=== PATIENT | male | born 1940 | race Caucasian/White ===

== ENCOUNTER → 2017-08-18 | Outpatient (CLI) | payer MEDICARE, OTHER ==
[~2017-08-18] MED LIST: ACET325 PO; ASCO500 PO; ASCORBIC ACID SYRUP PO; ASPI81CH PO; ASPI81EC PO; ATOR20 PO; Alph-E-Mixed400 UNIT PO; B Complex-Foli1 EACH PO; B Complex1 EAC2 PO; BISA10S PR; Bactrim Ds Tab1 EACH PO; CEFP200 PO; CHOL10002 PO; CYCL10 PO; Ceftriaxone1 G2 IV; DOCU100 PO; Desyrel50 MG PO; FENT75TP TOP; FISH1000 PO; GABA100 PO; HYDCHL12.5 PO; Hydrocodone-Ap1 EA23 PO; Hytrin2 MG; Hytrin2 MG PO; IBUP400 PO; LAVAP17G PO; LISI20 PO; LOSA25 PO; LOSA50 PO; MELA3 PO; METF500 PO; METO25; METO25 PO; METO25ER PO; Micro-K10 MEQ PO; NAPR250 PO; PHENY100ER PO; POTCHL10ER PO; SENN187 PO; SERT50 PO; SIMV10 PO; Seroquel25 MG PO; TERA5 PO; TOCO400 PO; TRAZ50 PO; Vitamin C100 MG/ML PO; [UNRECOGNIZED DRUG - OTHER] PO
[2017-08-18 11:22] LABS: Hematocrit 44.2 % (37.0-53.0); Hemoglobin 14.2 g/dL (13.5-17.5); Mean Corpuscular HGB 27.5 pg (26.0-34.0); Mean Corpuscular HGB Conc 32.1 g/dL (31.5-36.5); Mean Corpuscular Volume 86 fL (80-100); Mean Platelet Volume 9.7 fL (9.1-12.4); Platelet Count 198 K/mm3 (150-400); RDW Coefficient Variation 14.1 % (11.7-14.2); RDW Standard Deviation 43.9 fL (35.1-46.3); Red Blood Cell Count 5.16 M/mm3 (4.30-5.90); White Blood Cell Count 21.15 K/mm3 (4.00-11.30)
[2017-08-18 12:26] LABS: Anion Gap 11 mmol/L (6-16); Blood Urea Nitrogen 17 mg/dL (8-24); Bun/Creatinine Ratio 18.4 (12.0-20.0); CO2, Blood 23 mmol/L (21-32); Chloride, Blood 102 mmol/L (98-108); Creatinine, Blood 0.93 mg/dL (0.60-1.20); Glomerular Filtration Rate >60 (60-); Glucose, Blood 165 mg/dL (70-99); Potassium, Blood 4.2 mmol/L (3.5-5.5); Sodium, Blood 136 mmol/L (136-145)
== END ==
LOC: LAB UVN 11:08 → EDSTATUS 11:36
PROVIDERS: Family Medicine
DX: R50.9 Fever, unspecified (principal)
CPT/HCPCS: 80048; 85027

== ENCOUNTER → 2017-08-19 | Outpatient (CLI) | payer MEDICARE, OTHER ==
[2017-08-19 08:00] LABS: Bilirubin, Urine Neg (Neg); Blood, Urine 3+ (Neg); Glucose Qualitative, Urine Neg (Neg); Ketones, Urine Neg (Neg); Leukocyte Esterase, Urine 3+ (Neg); Nitrite, Urine Neg (Neg); Protein, Urine 1+ (Neg); Urobilinogen, Urine NORM (Normal)
[2017-08-19 08:08] LABS: Appearance, Urine Clear (Clear); Color, Urine Pale Yellow (P-Yellow)
[2017-08-19 08:13] LABS: White Blood Cells, Urine TNTC /hpf (0-5)
[2017-08-19 08:14] LABS: Bacteria Few /hpf; Squamous Epithelial Cells Not Seen /hpf (Few)
== END ==
LOC: LAB UVN 03:30 → EDSTATUS 11:37
PROVIDERS: Family Medicine
DX: N39.0 Urinary tract infection, site not specified (principal)
CPT/HCPCS: 81001; 87077; 87086; 87186

== ENCOUNTER → 2017-12-14 | Outpatient (CLI) | payer MEDICARE, OTHER | END | disposition home or self-care (01) | LOC: LAB UVN 11:36 → EDSTATUS 13:23 | DX: A49.9 Bacterial infection, unspecified (principal) | CPT/HCPCS: 87070; 87077; 87186; 87205 ==

== ENCOUNTER → 2017-12-22 | Outpatient (CLI) | payer MEDICARE, OTHER ==
[2017-12-22 14:03] LABS: Hematocrit 41.9 % (37.0-53.0); Hemoglobin 13.5 g/dL (13.5-17.5); Mean Corpuscular HGB 27.4 pg (26.0-34.0); Mean Corpuscular HGB Conc 32.2 g/dL (31.5-36.5); Mean Corpuscular Volume 85 fL (80-100); Mean Platelet Volume 8.2 fL (9.1-12.4); Platelet Count 316 K/mm3 (150-400); RDW Standard Deviation 43.4 fL (35.1-46.3); Red Blood Cell Count 4.92 M/mm3 (4.30-5.90); White Blood Cell Count 9.01 K/mm3 (4.00-11.30)
[2017-12-22 14:15] LABS: Alanine Aminotransfer (ALT/SGP 25 U/L (12-78); Albumin, Blood 2.9 g/dL (3.4-5.0); Albumin/Globulin Ratio 0.7 (0.8-1.8); Alk Phos 116 U/L (50-136); Anion Gap 8 mmol/L (6-16); Aspartate Aminotrans (AST/SGOT 16 U/L (12-37); Bilirubin, Total 0.3 mg/dL (0.1-1.0); Blood Urea Nitrogen 16 mg/dL (8-24); Bun/Creatinine Ratio 25.3 (12.0-20.0); CO2, Blood 26 mmol/L (21-32); Calcium, Blood 8.7 mg/dL (8.5-10.1); Chloride, Blood 103 mmol/L (98-108); Creatinine, Blood 0.63 mg/dL (0.60-1.20); Globulin, Blood 4.3 g/dL (2.2-4.0); Glomerular Filtration Rate >60 (60-); Glucose, Blood 125 mg/dL (70-99); Potassium, Blood 3.8 mmol/L (3.5-5.5); Sodium, Blood 137 mmol/L (136-145); Total Protein, Blood 7.2 g/dL (6.4-8.2)
[2017-12-22 15:27] LABS: Appearance, Urine Hazy (Clear); Bilirubin, Urine Neg (Neg); Blood, Urine 5+ (Neg); Color, Urine Yellow (P-Yellow); Glucose Qualitative, Urine Neg (Neg); Ketones, Urine Neg (Neg); Leukocyte Esterase, Urine 3+ (Neg); Nitrite, Urine Neg (Neg); Protein, Urine 3+ (Neg); Specific Gravity, Urine 1.015 (1.003-1.022); Urobilinogen, Urine 1+ (Normal)
[2017-12-22 15:51] LABS: Bacteria Many /hpf; Squamous Epithelial Cells Few /hpf (Few); White Blood Cells, Urine 25-50 /hpf (0-5)
== END | disposition home or self-care (01) ==
LOC: EDSTATUS 13:24 → LAB UVN 13:45
PROVIDERS: Family Medicine
DX: N39.0 Urinary tract infection, site not specified (principal); M62.81 Muscle weakness (generalized)
CPT/HCPCS: 80053; 81001; 85027; 87077; 87086; 87186

== ENCOUNTER → 2018-07-12 | Outpatient (CLI) | payer MEDICARE, OTHER ==
[2018-07-12 19:38] LABS: Influenza A Negative (NEGATIVE); Influenza B Negative (NEGATIVE)
== END | disposition home or self-care (01) ==
LOC: EDSTATUS 11:48 → LAB UVN 18:44
DX: R50.9 Fever, unspecified (principal)
CPT/HCPCS: 87804

== ENCOUNTER 2018-10-22 21:14 | Inpatient (IN) | payer MEDICARE, OTHER ==
[~2018-10-22] VITALS: Ht 182.9 cm; Wt 90.3 kg
[~2018-10-22 21:14] MED LIST changes: -Desyrel50 MG PO
[2018-10-22] MEDS ORDERED: Lopressor 25 mg25 MG PO (21:31)
[2018-10-22] MEDS ORDERED: PSYSENPA PO (21:32)
[2018-10-22] MEDS ORDERED: TOCO1000 PO (21:34)
[2018-10-23 06:19] LABS: BASOPHILS ABSOLUTE AUTO 0.05 K/mm3 (0.00-0.23); BASOPHILS PERCENT AUTO 0 % (0-2); EOSINOPHILS PERCENT AUTO 0 % (0-6); Hemoglobin 13.3 g/dL (13.5-17.5); IMMATURE GRAN ABSOLUTE AUTO 0.08 K/mm3 (0.00-0.10); IMMATURE GRAN PERCENT AUTO 1 % (0-1); LYMPHOCYTES ABSOLUTE AUTO 0.96 K/mm3 (0.84-5.20); LYMPHOCYTES PERCENT AUTO 6 % (21-46); MONOCYTES ABSOLUTE AUTO 0.97 K/mm3 (0.16-1.47); MONOCYTES PERCENT AUTO 6 % (4-13); Mean Corpuscular HGB 26.8 pg (26.0-34.0); Mean Corpuscular HGB Conc 30.9 g/dL (31.5-36.5); Mean Corpuscular Volume 87 fL (80-100); Mean Platelet Volume 9.4 fL (9.1-12.4); NEUTROPHILS ABSOLUTE AUTO 15.48 K/mm3 (1.96-9.15); NEUTROPHILS PERCENT AUTO 88 % (41-73); Platelet Count 182 K/mm3 (150-400); RDW Coefficient Variation 15.3 % (11.7-14.2); RDW Standard Deviation 48.2 fL (35.1-46.3); Red Blood Cell Count 4.97 M/mm3 (4.30-5.90); White Blood Cell Count 17.54 K/mm3 (4.00-11.30)
[2018-10-23 06:36] LABS: Alanine Aminotransfer (ALT/SGP 27 U/L (12-78); Albumin, Blood 2.6 g/dL (3.4-5.0); Albumin/Globulin Ratio 0.7 (0.8-1.8); Alk Phos 150 U/L (50-136); Anion Gap 7 mmol/L (6-16); Aspartate Aminotrans (AST/SGOT 23 U/L (12-37); Bilirubin, Total 0.6 mg/dL (0.1-1.0); Blood Urea Nitrogen 27 mg/dL (8-24); Bun/Creatinine Ratio 26.7 (12.0-20.0); CO2, Blood 22 mmol/L (21-32); Calcium, Blood 8.1 mg/dL (8.5-10.1); Chloride, Blood 114 mmol/L (98-108); Creatinine, Blood 1.01 mg/dL (0.60-1.20); Globulin, Blood 3.6 g/dL (2.2-4.0); Glomerular Filtration Rate >60 (60-); Glucose, Blood 144 mg/dL (70-99); Potassium, Blood 4.2 mmol/L (3.5-5.5); Sodium, Blood 143 mmol/L (136-145); Total Protein, Blood 6.2 g/dL (6.4-8.2)
--- NOTE | 2018-10-23 07:29 | NUR ---
ADMIT NOTE/SHIFT SUMMARY PATIENT LETHARGIC UPON ADMIT AND NOT RESPONSIVE TO VERBAL STIMULI OR TOUCH. HOWEVER, PATIENT SLOWLY STARTED WAKING UP AND HAS BECOME ALERT AND ABLE TO FOCUS ON STAFF. PATIENT HAS BEEN MOANING AND CRYING OUT THIS MORNING. PATIENT JUST NOW STARTING TO SAY WORDS AND VERBALLY RESPOND TO STAFF WHEN HE IS SPOKEN TOO. PATIENT TURNED Q2H. ORAL CARE PROVIDED. IV FLUIDS RUNNING PER ORDERS. REPORT GIVEN TO ONCOMING RN.
--- NOTE | 2018-10-23 07:53 | NUR ---
The pt was awake, calling out. He answers that his name is "Bill", but more complicated questions he is giving me garbled sentences with obvious effort at getting some words and phrases out. Falls back to sleep quickly after my conversation with him. He was attempting to take his watch off of the left wrist, so I helped him with this as he was in danger of dislodging the IV infusing on the left hand. Watch was placed in the [facility] patient belongings bag in thept's own wheelchair here in the room. IV was secured with coban and MT spandage to prevent accidental dislodgement. Vital signs taken, noted tachypnea, but no use of accessory muscles nor respiratory distress. He has coarse tracheal secretions, and occasional cough but not expectorating any sputum at this time. Lying down, and appears to be comfortable, non distressed, non anxious. Low grade fever noted and documented.
--- NOTE | 2018-10-23 09:50 | NUR ---
Bedside swallow evaluation completed per [facility] policy algorithm. No difficulty swallowing. The pt is sitting upright, eating pudding and dry cheerios with a spoon.
--- NOTE | 2018-10-23 11:07 | NUR ---
SPOKE WITH KIRIT FROM [facility], PT BASELINE MENTATION IS ALERT AND ORIENTED TO SELF, BUT HE STATES THE PATINET CALLS OUT FOR MOM/DAD, ATTEMPTS TO GET UP AND WALK ALTHOUGH HE IS PARAPELIGIC AND DOES NOT KNOW WHERE HE IS OR THE DATE. KIRIT STATES THERE ARE TIME, WHICH "ARE FEW AND FAR BETWEEN" WHERE THE PATIENT CAN BE REORIENTED TO WHERE AND TIME.
--- NOTE | 2018-10-23 11:09 | NUR ---
ASSUMED CARE OF PATIENT AT APPROX 0700, PT RESTING IN BED, MOANING AND RESPONDING TO VERBAL STIMULI. DURING ASSESSMENT THIS AM, PT IS ALERT AND ORIENTED TO SELF ONLY. PT SPEECH IS LOUD, GARBLED AND NO ALWAY APPROPRIATE ANSWER. PT STATES HE IS IN A HALLWAY IN [place] AND THE DAY IS THURSDAY. PT CALLS OUT FOR HELP AND MOM/DAD AND AT TIMES, WHAT APPEARS TO BE RANDOM WORDS. ATTEMPTS TO ANSWER QUESTIONS. PT ON RA, DENIES SOB, RESP EVEN AND UNLABORED BETWEEN 18-24. PT DENIES PAIN AND IS REQUESTING FOOD. DR OLIVARES AT BEDSIDE, ORDERS FOR BEDSIDE SWALLOW AND DIET IF PASSED. SUPERPUBLIC CATHETER IN PLACE, PATENT AND DRAINING. VSS. WILL CONTINUE TO MONITOR.
--- NOTE | 2018-10-23 16:16 | NUR ---
After calls to other departments to find an available RN who could attempt an IV start using the sonosite, unsuccessfully, Davis Adamson from [facility] was able to insert an IV peripherally. Prior to this, both myself and the principal technical specialist had attempted and failed to start an IV on the pt after he pulled his IV out this morning. He had become increasingly agitated while left alone in the room, pulling off his telemetry box, pulling on his suprapubic catheter, and constantly shouting out various confused requests. He was calm when a staff member was talking with him at the bedside; however, left alone he was constantly yelling and pulling the equipment off and tearing things apart. He will not keep the SCDs on his legs. Call to [facility] and spoke with Tom, one of the's primary nurses there. Tom clarified that the patient does NOT have an allergy to Serequel; indeed, had been receiving it but had had some oversedation when the dose had been increased to calm the pt's agitation. The pt has a current order at their facility for serequel, and this was communicated to Dr. Krishnan who ordered the medication for the patient's agitation at this time. Presently the pt has a fever of 102.5. He is being offered and drinking cupfuls of ice water, and now that he has an IV, is getting both the scheduled antibiotic and his concurrent continuous IV fluids. He is calm, lying in bed awake and alert, but no longer yelling out. Music is playing in the background. He is no longer pulling at any lines nor tubes, and these have been hidden/covered with pillows or linen to remove them from the pt's sight.
--- NOTE | 2018-10-23 18:22 | NUR ---
SHIFT SUMMARY PT ALERT AND ORIENTED TO SELF, ANSWERS SIMPLE QUESTIONS APPROPRIATELY. WHEN ASKED MORE COMPLICATED QUESTIONS PT IS SLOW TO RESPOND, GARBLED SPEECH AT TIMES AND INAPPROPRIATE RESPONSES. WHEN STAFF IS OUT OF EYE SIGHT PT CALLING OUT FOR DAD/MOM AND OTHER WORDS, NOTIFED DR OLIVARES, NEW ORDERS FOR SEROQUEL 12.5 MG PO Q12H PRN FOR AGITATIONS. KIRIT AT [facility] STATES THAT THERE IS NOT AN ALLERGY, HOWEVER AN ISSUE WITH OVER SEDATION WITH HIGH DOSES. MEDICATED PER EMAR FOR AGGITATION. PT DENIES PAIN, SOB AND N/V. BEDSIDE SWALLOW EVAL COMPLETED THIS AM, SOFT BITE SIZE DIET ORDERED, PT APPEARS TO BE TOLERATING WELL. PT RECEIVING IV ANTIBIOTICS. SUPERPUBIC BURNETTE IN PLACE AND DRAINING. ELEVATE PT NOTED THIS AFTERNOON, AND PT FEBRILE THIS AFTERNOON, MEDICATED WITH TYLENOLx1. NO OTHER ACUTE CHANGES NOTED DURING SHIFT. WILL COTINUE TO MONITOR UNTIL REPORT GIVEN TO ONCOMING RN.
--- NOTE | 2018-10-23 18:25 | NUR ---
Febrile despite oral rehydration and reinitiation of maintainance IV fluids and IV antibiotics after IV site established. Cooling measures: the pt has only been wearing a cotton gown, and at this time his face, neck, arms and head were wiped with a cool washcloth (much to his consternation), more ice water given by mouth, fan placed facing him on the table nearby, and Tylenol was given by mouth with drinks of ice water. He is keeping his eyes closed, occasionally yelling out "Daddy" or "Renetta" or "Bill".
[2018-10-24 03:48] LABS: BASOPHILS ABSOLUTE AUTO 0.02 K/mm3 (0.00-0.23); BASOPHILS PERCENT AUTO 0 % (0-2); EOSINOPHILS ABSOLUTE AUTO 0.03 K/mm3 (0.00-0.68); EOSINOPHILS PERCENT AUTO 0 % (0-6); Hematocrit 34.1 % (37.0-53.0); Hemoglobin 10.8 g/dL (13.5-17.5); IMMATURE GRAN ABSOLUTE AUTO 0.03 K/mm3 (0.00-0.10); IMMATURE GRAN PERCENT AUTO 0 % (0-1); LYMPHOCYTES ABSOLUTE AUTO 0.86 K/mm3 (0.84-5.20); LYMPHOCYTES PERCENT AUTO 11 % (21-46); MONOCYTES PERCENT AUTO 9 % (4-13); Mean Corpuscular HGB 26.7 pg (26.0-34.0); Mean Corpuscular HGB Conc 31.7 g/dL (31.5-36.5); Mean Platelet Volume 8.6 fL (9.1-12.4); NEUTROPHILS ABSOLUTE AUTO 6.39 K/mm3 (1.96-9.15); NEUTROPHILS PERCENT AUTO 80 % (41-73); Platelet Count 113 K/mm3 (150-400); RDW Coefficient Variation 15.5 % (11.7-14.2); RDW Standard Deviation 46.9 fL (35.1-46.3); Red Blood Cell Count 4.05 M/mm3 (4.30-5.90); White Blood Cell Count 8.03 K/mm3 (4.00-11.30)
[2018-10-24 03:57] LABS: Mean Corpuscular Volume 84 fL (80-100)
[2018-10-24 04:14] LABS: Anion Gap 4 mmol/L (6-16); Blood Urea Nitrogen 20 mg/dL (8-24); CO2, Blood 23 mmol/L (21-32); Chloride, Blood 113 mmol/L (98-108); Glomerular Filtration Rate >60 (60-); Glucose, Blood 107 mg/dL (70-99); Potassium, Blood 3.7 mmol/L (3.5-5.5); Sodium, Blood 140 mmol/L (136-145)
--- NOTE | 2018-10-24 05:51 | NUR ---
SHIFT SUMMARY: PATIENT VERY DROWSY AT THE BEGINNING OF THE SHIFT. PATIENT UNABLE TO STAY AWAKE FOR A PERIOD LONG ENOUGH TO SAFELY TAKE HIS 2100 PO MEDICATIONS LAST NIGHT. THROUGHOUT THE NIGHT PATIENT SLOWLY STARTED TO WAKE UP FURTHER. PATIENT NOW ALERT BUT CONFUSED AND FORGETFUL. PATIENT ABLE TO ANSWER SHORT QUESTIONS BUT DOES NOT ALWAYS ANSWER APPROPRIATELY. PATIENT APPEARED TO NAP ON AND OFF THROUGHOUT THE NIGHT. PATIENT TURNED Q2H, IV FLUIDS AND ABX RUNNING PER ORDERS. PATIENT CURRENTL RESTING IN BED LOOKING OUT THE WINDOW. WILL CONTINUE TO MONITOR PATIENT AND REPORT TO ONCOMING RN.
--- NOTE | 2018-10-24 20:12 | NUR ---
SHIFT SUMMARY: When RN arrived today Pt was yelling out for Mom and Dad. Camlbed down after speaking with RN for awhile. Pt was confused and remained confused throughout this shift, althought he does follow directions well. LS were deminished. HR was reg. BT positive. Abd very distended and firm. SP cath draining yellow urine with some sediment in it. VSS throughout the shift. Pt has been repositioned throughout the shift. He had 2 very large liquid, brown stools this shift. Pt is unaware when he has a stool. IVF running throughout the shift. New antibiotics were ordered and given per orders. No other changes at this time. Report was given to night RN.
--- NOTE | 2018-10-25 07:25 | NUR ---
SHIFT SUMMARY PATIENT PLEASENT BUT CONFUSED THROUGHOUT THE NIGHT. PATIENT REQUIRED FREQUENT REORIENTATION. PATIENT MUCH MORE ALERT AND ABLE TO CARRY ON A CONVERSATION WITH STAFF. PATIENT ALSO ABLE TO RESPOND TO MOST QUESTIONS, HOWEVER, HIS RESPONSES ARE NOT ALWAYS APPROPRIATE. PATIENT APPEARED TO NAP ON AND OFF THROUGHOUT THE NIGHT. IV FLUIDS AND ABX RUNNING PER ORDERS. PATIENT TURNED Q2H. VITAL SIGNS CHARTED. REPORT GIVEN TO ONCOMING RN.
--- NOTE | 2018-10-25 17:26 | NUR ---
SHIFT SUMMARY PT RESTING IN BED THROUGHOUT THE DAY. VSS. ALERT AND ORIENTED TO SELF AND PLACE, REORIENTED TO TIME. YELLING OUT AT TIMES, BUT IS REDIRECTABLE. FOLLOWING COMMANDS APPROPRIATELY. LUNG SOUNDS EXPIRATORY WHEEZES TO UPPER LOBES, DIMINISHED BASES. NSR WITH PACs ON TELEMETRY RATE 69. ABDOMEN ROUND AND FIRM, SOFTER AFTER BM THIS AFTERNOON. SUPRAPUBIC CATHETER DRAINING CLEAR YELLOW URINE. PT UP TO RECLINER VIA CEILING LIFT FOR LUNCH AND TOLERATED WELL. LEFT BUTTOCK DRSG SOILED WITH STOOL. NEW CALCIUM ALGINATE AND MEPILEX TO LEFT BUTTOCK WOUND. WILL CONTINUE TO MONITOR.
--- NOTE | 2018-10-25 19:46 | NUR ---
CARE ASSUMPTION PT ALERT, ORIENTED TO SELF ONLY, CONFUSED AND REQUIRING REORIENTATION. PT STATES BEING "SHUFFLED FROM ROOM TO ROOM. BUILDING TO BUILDING" AND NEEDING A DENTIST, CONTINUALLY ASKING WHY THERE ARE NO DENTISTS HERE. PT ON BEDREST REQUIRING Q2H REPOSITIONING W/ MAX ASSIST. PT INCONTINENT OF STOOL, ATTENDS IN PLACE, C/D/I. SUPRAPUBIC CATH PATENT AND DRAINING CLEAR YELLOW URINE. WILL CONTINUE TO MONITOR AND PROVIDE CARE.
[2018-10-25 22:27] LABS: Vancomycin, Trough 16.9 ug/mL (5.0-10.0)
--- NOTE | 2018-10-26 04:23 | NUR ---
SHIFT SUMMARY PT ALERT, ORIENTED TO SELF ONLY, REQUIRING REORIENTATION TO TIME AND PLACE T/O SHIFT. PT CALLING OUT "MOTHER!" OCCASSIONALLY T/O SHIFT, STATING "I'M LONELY" UPON INQUIRY FOR PT CALLING OUT. PT ENCOURAGED TO USE CALL LIGHT INSTEAD OF CALLING OUT W/OUT SUCCESS IN PT USE OF CALL LIGHT. PT IN BED, W/ Q2H 2 PERSON MAX ASSIST W/ REPOSITIONING. PT PASSING CLEAR, MUCUOUSY GI OUTPUT & BROWN CHUNKS OF STOOL W/ MOST Q2H REPOSITION CHANGES. SUPRAPUBIC CATH PATENT AND DRAINING CLEAR YELLOW URINE. MONITOR SHOWS NSR, HR 70'S. LUNG SOUNDS CLEAR, DIM IN BASES. SPO2 > 92% ON RA. MEPILEX DRESSING IN PLACE TO L BUTTOCKS PRESSURE ULCER. WILL CONTINUE TO MONITOR AND PROVIDE CARE UNTIL REPORT OFF TO DAY SHIFT RN.
--- NOTE | 2018-10-26 16:00 | NUR ---
[facility] CARE VISIT: UPDATED INFO ON PT'S MEDICAL POA UPDATE on medical POA. Pt's medical POA is his step-son, Kishore, who lives out of [facility]. He will be sending me copies of this documentation & contact info. I will update medical records when I have his contact information. He lives in [facility]. For now, Family contact, working with Kishore, in managing pt's care is pt's son, NAVEEN [phone]. Pt's has had a stroke and is living at [facility]. She has expressive aphasia and is not able to act as his medical POA at this time. Son plans to talk with her this perry to update her on pt's status and hospital stay. I have reviewed the most current POLST obtained from [facility], completed with pt/ in March of 2018 with both sons. They request that pt's code status orders be changed to be in agreement with the most recent POLST. T/c to Dr with this information and code status changed to DNR per . I had a lengthy discussion with both sons by conference call re: family wishes for goals of care, pt's current status and plans for tx of UTI and transfer back to [facility]. Reviewed pt/'s selections on the current POLST with both sons and outlined what comfort care, comfort measures and/or hospice follow up care would entail and the available options that would be in line with their POLST choices. Son's very appreciative of the conversation and information. Plan made with them to meet with Naveen in person on his lunch break in pt's room at 1230 tomorrow. Naveen and Kishore to discuss pt's care with his and other family tomorrow to formulate identified goals for care moving forward. They feel their mom would want the UTI's treated at this time either with PO or IV medications. I offered to update the POLST to reflect this tomorrow when we meet in person, if that is indeed determined by pt's and family discussion. Per 's progress notes, pt's mentation is nearing baseline and he is improving/responding to treatment for the UTI/sepsis. Pending final culture results, he may be ready for discharge and return to [facility] as soon as tomorrow. This was shared with sons. I assessed pt in his room and case conferenced with his RN today several times. He is pleasantly confused, oriented to self and that he is in the hospital. Per his son, Naveen, his mentation has improved since admission. Son has talked to him on the phone today and visitied yesterday. I did not note nonverbal indicators of pain or distress and pt appears mostly calm and unbothered. I had discussed quality of life with sons to determine what pt's expectations/desires were and whether he had been fairly happy when he was not acutely ill, as he has many serious chronic illnesses. Son's anticipate his return to [facility] care when he is medically ready. Plan remains to meet with Naveen in person and conference call Kishore in on that meeting to discuss advanced care planning further in r/t future goals of care and whether they would want him to return to the hospital in the future for recurrent UTI's or other infections. They are happy with the treatment he is receiving at this time and do not want to make any further changes beyond changing his code status to DNR, which has been done.
--- NOTE | 2018-10-26 16:57 | NUR ---
SHIFT SUMMARY PT RESTING IN BED THROUGHOUT THE DAY. ALERT AND ORIENTED TO SELF AND PLACE, PT EASILY REORIENTED TO TIME AND SITUATION, BUT PT IS FREQUENTLY FORGETFUL. DENIES PAIN TODAY. LUNG SOUNDS DIMINISHED THROUGHOUT, NSR WITH PACs ON TELEMETRY. ABDOMEN ROUND, SOFT, NON TENDER. SUPRAPUBIC CATHETER DRAINING CLEAR YELLOW URINE. NORMAL STRENGTH TO BILATERAL HANDS, PT ABLE TO MOVE LEFT FOOT SLIGHTLY, BUT MOVEMENT IN NOT PURPOSEFUL. WILL CONTINUE TO MONITOR.
--- NOTE | 2018-10-26 17:06 | NUR ---
TRANSFER NOTE PT STABLE FOR TRANSFER TO MEDICAL FLOOR. REPORT CALLED TO TIFFANY KULKARNI ON MEDICAL FLOOR. PT TRANSFERED VIA BED TO MEDICAL FLOOR WITH BELONGINGS.
--- NOTE | 2018-10-26 18:12 | NUR ---
SUMMARY PT SITTING UP IN BED EATING DINNER, PT WAS TRANSFERRED UP FROM PCU, PT ALERT AND ORIENTED TO PLACE AND EVENT, NOT TO TIME, PT FORGETFUL AND PLEASANT, PT HAS A SUPRAPUBIC CATHETER IN PLACE DRAINING, PLAN TO DC BACK TO [facility] IN THE NEXT DAY OR 2, VSS, NO ACUTE CHANGES, WILL CONT TO MONITOR
--- NOTE | 2018-10-27 07:02 | NUR ---
SHIFT SUMMARY: PATIENT IS ALERT AND ORIENTED TO SELF. HE CONTINUES TO THINK HIS FAMILY IS AROUND, AND HIS PARENTS. APPARENTLY HIS MOTHER AND FATHER ARE BUT HE DOES NOT REMEMBER. THROUGOUT THE NIGHT HE CONTINUED TO CRY OUT AND THOUGHT HE WAS HUNTING WITH HIS FRIENDS. CONTINUED TO RE-ORIENT HIM BUT AT TIMES IT DID NOT WORK. OVERALL WITH HIS CONFUSION, HE DID WELL AND NEVER ESCLATED TO WANTING TO GET OUT OF BED OR PULLING ON LINES. HE WAS PLEASANT THROUGOUT. TOOK MEDS WITH NO COMPLICATONS. SLEPT OFF AND ON. CATHETER STAYED PATENT, IV DID START TO LEAK IN THE LEFT ARM, SO A NEW 22 G WAS STARTED IN THE RIGHT HAND. THIS IS INFUSING WITH NO PROBLEMS.
--- NOTE | 2018-10-27 12:13 | NUR ---
PT TRANSFERED TO ROOM 344 IN SPECIAL CARE UNIT. REPORT GIVEN TO JOSEP Ahuja RN.
--- NOTE | 2018-10-27 13:30 | NUR ---
Palliative Care f/u visit with pt and son, Cornel. Pt is much more active in calling out, anxious behaviors and disorientation. He has been in three different rooms in the past 24 hours and this is contributing to pt's disorientation. He is distraught in believing that he has done something that will affect his 's employment. He believes he is late for work. Son and I both reoriented him repeatedly and reassured him that all was well with his . She is, in fact, not employed but in a care facility herself after a CVA. Cornel and I reviewed the goals of care, current status and plans and reviewed pt's POLST in detail. Paul is being discharged back to [facility] today. Cornel reviewed medications and status of his dad's wound on coccyx with pt's bedside RN. Cornel has been transporting his dad to a wound care clinic 1-2xw for months and has been very involved in this care. Medications for anxiety discussed as that is pt's chief complaint. He denies pain, CHAIREZ, nausea but reports he feels like his heart is pounding. In explouring this further, pt reports that he feels very anxious. Cornel states he has been on seroquel tid at [place] and this has been very helpful. That is ordered q12h here. Pt's RN to ask Dr if pt can be given his dose of seroquel before transport by [facility] back to [place]. Son had been in contact with [facility] staff this am. They indicated that they would like to complete an updated POLST upon pt's return. I asked Cornel to make sure we get a copy of the updated POLST once it is completed and I asked them to be sure page 2 was filled out with patient's NOK/family and medical POA information provided in the spaces for that. Cornel verbalized understanding. Cornel also mentioned that he and his step-brother, Kishore, were in the process of transferring the medical POA responsibility to Cornel. I obtained advanced directive forms for Cornel and Kishore to review and complete as desired. I asked Cornel if he would like to conference call Kishore or to have me call him with an update. Cornel states he will be calling Kishore this afternoon. Cornel invited to call us with the number provided if they have any other questions or would like to discuss advanced care planning further. Cornel appreciative of the time spent and discussions re: his dad's care and planning.
--- NOTE | 2018-10-27 16:54 | NUR ---
SHIFT SUMMARY PATIENT YELLS OUT FREQUENTLY. ABLE TO REORIENT TO BEING IN THE HOSPITAL. NEW DRESSING PLACED TO COCCYX DUE TO NOTED REDNESS. NEW DRESSING PLACED IN WOUND. POTENTIAL DISCHARGE TOMORROW TO [facility].
--- NOTE | 2018-10-28 04:18 | NUR ---
SHIFT SUMMARY THE PT ADMITTED FOR SEPSIS. DNR. SOFT BITE SIZED CARDIAC DIET. CBG AT AC AND HS. [id number] DRESSING FOR PRESSURE ULCER O THE LEFT GLUTEAL CLEF, CHANGE PRN, COLLAGEN ECM SIN X2 IN WITH DRESSING CHANGE Q [address] TURNER CONSULT FOR UTI AND BACTEREMIA FROM CULTURE DONE AT THE [place]. [facility]. POSSIBLE DISCHARGE BACK TO [facility] FOLLOWING DR. TURNER CONSULT. CHRONIC SUPRAPUBIC CATHETER. TAKES MEDICATIONS WHOLE. PT PULLED 22G IV FROM R HAND. TO G IV TO R AC. 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 THE PT PRESENTED WITH AMS. THE PT IS A LONG-TERM CARE RESIDENT AT [facility] WHO WAS BROUGHT TO THE [place] ED AND DIAGNOSED WITH SEPSIS. THE PT NOTED TO HAVE RLL PNEUMONIA AND UTI SECONDARY TO CHRONIC SUPRAPUBIC CATHETER. THE PT HAS BEEN IN ROOM CALLING OUT FREQUENTLY FOR "MOM" THE PT IS PLEASENT AND COOPERATIVE WITH CARE. THE PT IS WELL KNOWN TO THIS NURSE. THE PT DOES APPEAR TO BE A BIT ANXIOUS IN ROOM DUE TO NOT RECONGNIZING HIS SURROUNDINGS. THE PT IS AWAKE AT THIS TIME WATCHING TV. NO APPARENT SIGNS OF ACUTE DISTRESS. FREQUENT VISUAL CHECKS THE PT DOES NOT USE THE CALL LIGHT AT THIS TIME.
[2018-10-28] MEDS ORDERED: Fruity C250 MG PO (09:06)
[2018-10-28] MEDS ORDERED: DOC250 PO (09:08)
[2018-10-28] MEDS ORDERED: OCULAR VITAMIN1 EACH PO (09:10)
[2018-10-28] MEDS ORDERED: SENN187 PO (09:12)
[2018-10-28] MEDS ORDERED: ARGINAID POWDE1 EACH PO (09:18)
[2018-10-28] MEDS ORDERED: DIVA250EC PO (09:19)
[2018-10-28] MEDS ORDERED: DIVA125EC PO (09:19)
[2018-10-28] MEDS ORDERED: QUET25 PO (09:24)
--- NOTE | 2018-10-28 16:11 | NUR ---
SHIFT SUMMARY REQUESTED FAX PER DR. MART REQUEST FROM ME, HAVE NOT HEARD BACK. NOTIFIED BRITTNY AND WILL REATTEMPT FOR LAB RESULTS 10/29. PATIENT HAS BEEN YELLING FOR "MOMMAHAD AND DADTANIA". REORIENTS WHEN STAFF ENTER ROOM. PATIENT HAS HAD NO ACUTE ISSUES. INCONTINENT OF STOOL. TOLERATING IV ANTIBIOTICS WITH NO ISSUES.
--- NOTE | 2018-10-29 04:47 | NUR ---
OCEAN CLAM BOAT CAPTAIN SUMMARY NO ACUTE CHANGES THIS SHIFT. PT AAOX2 WITH SOME INTERMITTENT CONFUSION. PT HAS SLEPT MAJORITY OF THE SHIFT. CONTINUED ON IV ZOSYN Q6H. PT ACCIDENTALLY PULLED IV WHILE SLEEPING. BURNETTE CATH PATENT AND DRAINING. VSS, WILL CONTINUE TO MONITOR.
--- NOTE | 2018-10-29 09:29 | NUR ---
FAXED/CALLED [facility] CALLED BALL WARPER TENDER ON DUTY, REQUESTING PT LAB RESULTS FOR BLOOD, URINE AND WOUND. HE FORWARDED MY CALL TO RELEASE OF INFORMATION DEPARTMENT. THEY HAD ME FAX ANOTHER REQUEST (ONE WAS FAXED YESTERDAY) FOR INFORMATION AND A COVER SHEET FOR THE PT IN ORDER TO GET THE RESULTS.
--- NOTE | 2018-10-29 14:18 | NUR ---
HOSPITALIST ROUNDED ON PT LABS RECEIVED FROM MA FOR HER REVIEW. HOSPITALIST ORDERED ECHO AND PUT IN DISCHARGE ORDERS FOR AFTER ECHO PERFORMED. AWAITING DISCHARGE PLANNING TO SECURE A BED AND TRANSPORT TO [facility]
[2018-10-29] MEDS ORDERED: Augmentin 875-1 EACH PO (15:48)
--- NOTE | 2018-10-29 16:18 | NUR ---
DISCHARGE NOTE PT'S IV DC'D WNL. PT'S PERSONAL WHEELCHAIR PICKED UP BY LOOM MECHANIC. PT'S FAMILY CALLED AND INFORMED PT IS GOING TO [facility]AC[facility] TODAY AROUND 4 PM. PT WILL BE TRANSPORTED VIA [facility] BY [facility]. REPORT CALLED TO [facility] NURSE BETH. DISCHARGE MEDICATIONS RECONCILED. PACKET PREPARED FOR FACILITY. DISCHARGE ORDERS FAXED TO [facility]. DISCHARGE PLANNING MADE ARRANGEMENTS FOR TRANSPORT AND FACILTY TRANSFER.
--- NOTE | 2018-10-29 17:14 | NUR ---
[facility] ARRIVED [facility] ARRIVED AND PT WAS TRANSPORTED VIA GURNEY WITH PERSONAL POSSESSIONS
== END 2018-10-29 17:03 | DRG 698 ==
LOC: ER 21:14 → MEDS 22:59 → PCU 22:59 → MEDS 10-26 17:16
PROVIDERS: Hospitalist; ADMIT Internal Medicine
DX: T83.511A Infection and inflammatory reaction due to indwelling urethral catheter, initial encounter (principal); L89.324 Pressure ulcer of left buttock, stage 4; A41.9 Sepsis, unspecified organism; R65.20 Severe sepsis without septic shock; G92 Toxic encephalopathy; J18.9 Pneumonia, unspecified organism; G82.20 Paraplegia, unspecified; N39.0 Urinary tract infection, site not specified; B96.4 Proteus (mirabilis) (morganii) as the cause of diseases classified elsewhere; B95.4 Other streptococcus as the cause of diseases classified elsewhere; E11.622 Type 2 diabetes mellitus with other skin ulcer; I10 Essential (primary) hypertension; F03.90 Unspecified dementia, unspecified severity, without behavioral disturbance, psychotic disturbance, mood disturbance, and anxiety; F32.9 Major depressive disorder, single episode, unspecified; I25.10 Atherosclerotic heart disease of native coronary artery without angina pectoris; E78.5 Hyperlipidemia, unspecified; E55.9 Vitamin D deficiency, unspecified; Z87.440 Personal history of urinary (tract) infections; Z88.8 Allergy status to other drugs, medicaments and biological substances; Z79.82 Long term (current) use of aspirin; Z79.899 Other long term (current) drug therapy; Z87.891 Personal history of nicotine dependence
CPT/HCPCS: 36415; 71045; 80048; 80053; 80202; 82947; 83605; 85025; 85651; 86140; 87040; 87070; 87205; 92610; 93005; 93010; 93306; 94640; 94760; 96361; 96374; 99285-25; A9270; C9113; J1644; J1885; J2543; J3370; J7030; J7050

== ENCOUNTER → 2018-12-08 | Outpatient (CLI) | payer MEDICARE, OTHER ==
[~2018-12-08] MED LIST changes: +ARGINAID POWDE1 EACH PO; +Augmentin 875-1 EACH PO; +DIVA125EC PO; +DIVA250EC PO; +DOC250 PO; +Fruity C250 MG PO; +Lopressor 25 mg25 MG PO; +OCULAR VITAMIN1 EACH PO; +PSYSENPA PO; +QUET25 PO; +TOCO1000 PO
[2018-12-08 14:49] LABS: Bilirubin, Urine Neg (Neg); Blood, Urine 5+ (Neg); Glucose Qualitative, Urine Neg (Neg); Ketones, Urine 1+ (Neg); Leukocyte Esterase, Urine 3+ (Neg); Nitrite, Urine Neg (Neg); Protein, Urine 4+ (Neg); Urobilinogen, Urine NORM (Normal)
[2018-12-08 15:03] LABS: Appearance, Urine Turbid (Clear); Color, Urine Yellow (P-Yellow)
[2018-12-08 15:06] LABS: Red Blood Cells, Urine TNTC /hpf (0-2); White Blood Cells, Urine TNTC /hpf (0-5)
[2018-12-08 15:08] LABS: Bacteria Many /hpf; Squamous Epithelial Cells Few /hpf (Few); Triple Phosphate Crystals Few /hpf
== END | disposition home or self-care (01) ==
LOC: EDSTATUS 13:00 → LAB UVN 14:31
PROVIDERS: Nurse Practitioner Family
DX: N39.0 Urinary tract infection, site not specified (principal)
CPT/HCPCS: 81001; 87077; 87086; 87147; 87186

== ENCOUNTER → 2018-12-28 | Outpatient (CLI) | payer MEDICARE, OTHER ==
[2018-12-28 07:41] LABS: Source, Urine Catheter
[2018-12-28 12:41] LABS: Bilirubin, Urine Neg (Neg); Blood, Urine 5+ (Neg); Glucose Qualitative, Urine Neg (Neg); Ketones, Urine Neg (Neg); Leukocyte Esterase, Urine 3+ (Neg); Nitrite, Urine Neg (Neg); Protein, Urine 2+ (Neg); Urobilinogen, Urine NORM (Normal); pH, Urine 6.5 (5.0-8.0)
[2018-12-28 13:24] LABS: Appearance, Urine Hazy (Clear); Color, Urine Yellow (P-Yellow); White Blood Cells, Urine 50-100 /hpf (0-5)
[2018-12-28 13:25] LABS: Bacteria Many /hpf; Mucus Light (0-Heavy); Squamous Epithelial Cells Rare /hpf (Few)
== END | disposition home or self-care (01) ==
LOC: LAB UVN 05:05 → EDSTATUS 09:49
DX: N39.0 Urinary tract infection, site not specified (principal)
CPT/HCPCS: 81001; 87077; 87086; 87186

== ENCOUNTER → 2019-01-26 | Outpatient (CLI) | payer MEDICARE, OTHER ==
[2019-01-26 12:29] LABS: Appearance, Urine Cloudy (Clear); Bilirubin, Urine Neg (Neg); Blood, Urine 4+ (Neg); Color, Urine Yellow (P-Yellow); Glucose Qualitative, Urine Neg (Neg); Ketones, Urine Neg (Neg); Leukocyte Esterase, Urine 3+ (Neg); Nitrite, Urine Pos (Neg); Protein, Urine 3+ (Neg); Urobilinogen, Urine NORM (Normal)
[2019-01-26 12:46] LABS: White Blood Cells, Urine TNTC /hpf (0-5)
[2019-01-26 12:48] LABS: Bacteria Many /hpf; Calcium Oxalate Crystals Rare /hpf; Squamous Epithelial Cells Not Seen /hpf (Few)
== END | disposition home or self-care (01) ==
LOC: LAB UVN 10:50 → EDSTATUS 13:22
DX: N39.0 Urinary tract infection, site not specified (principal)
CPT/HCPCS: 81001; 87077; 87086; 87186

== ENCOUNTER → 2019-06-09 | Outpatient (CLI) | payer MEDICARE, OTHER ==
[2019-06-09 19:22] LABS: Bilirubin, Urine Neg (Neg); Blood, Urine 5+ (Neg); Glucose Qualitative, Urine Neg (Neg); Ketones, Urine Neg (Neg); Leukocyte Esterase, Urine 3+ (Neg); Nitrite, Urine Pos (Neg); Protein, Urine 3+ (Neg); Urobilinogen, Urine NORM (Normal)
[2019-06-09 19:28] LABS: Color, Urine Yellow (P-Yellow)
[2019-06-09 19:29] LABS: Appearance, Urine Cloudy (Clear)
[2019-06-09 19:30] LABS: Bacteria Many /hpf; Red Blood Cells, Urine TNTC /hpf (0-2); Squamous Epithelial Cells Not Seen /hpf (Few); Transitional Epithelial Cells Few /hpf (0-Rare); White Blood Cells, Urine TNTC /hpf (0-5)
== END | disposition home or self-care (01) ==
LOC: LAB UVN 12:00 → EDSTATUS 15:04 → LAB UVN 15:04
PROVIDERS: Nurse Practitioner Family
DX: N39.0 Urinary tract infection, site not specified (principal)
CPT/HCPCS: 81001; 87086

== ENCOUNTER 2020-02-17 14:14 | Inpatient (IN) | payer MEDICARE, OTHER ==
[~2020-02-17] VITALS: Ht 170.2 cm; Wt 71.1 kg
[2020-02-17 14:55] LABS: BASOPHILS ABSOLUTE AUTO 0.05 K/mm3 (0.00-0.23); BASOPHILS PERCENT AUTO 0 % (0-2); EOSINOPHILS ABSOLUTE AUTO 0.09 K/mm3 (0.00-0.68); EOSINOPHILS PERCENT AUTO 1 % (0-6); Hematocrit 43.9 % (37.0-53.0); Hemoglobin 13.2 g/dL (13.5-17.5); IMMATURE GRAN ABSOLUTE AUTO 0.08 K/mm3 (0.00-0.10); IMMATURE GRAN PERCENT AUTO 1 % (0-1); LYMPHOCYTES ABSOLUTE AUTO 1.34 K/mm3 (0.84-5.20); LYMPHOCYTES PERCENT AUTO 9 % (21-46); MONOCYTES ABSOLUTE AUTO 0.75 K/mm3 (0.16-1.47); MONOCYTES PERCENT AUTO 5 % (4-13); Mean Corpuscular HGB 25.9 pg (26.0-34.0); Mean Corpuscular HGB Conc 30.1 g/dL (31.5-36.5); Mean Corpuscular Volume 86 fL (80-100); Mean Platelet Volume 8.7 fL (9.1-12.4); NEUTROPHILS ABSOLUTE AUTO 12.36 K/mm3 (1.96-9.15); NEUTROPHILS PERCENT AUTO 84 % (41-73); Platelet Count 380 K/mm3 (150-400); RDW Coefficient Variation 14.5 % (11.7-14.2); RDW Standard Deviation 46.1 fL (35.1-46.3); White Blood Cell Count 14.67 K/mm3 (4.00-11.30)
[2020-02-17 14:59] LABS: Source, Urine Catheter
[2020-02-17 15:12] LABS: Appearance, Urine Cloudy (Clear); Bilirubin, Urine Neg (Neg); Blood, Urine 5+ (Neg); Color, Urine Yellow (P-Yellow); Glucose Qualitative, Urine 2+ (Neg); Ketones, Urine Neg (Neg); Leukocyte Esterase, Urine 3+ (Neg); Nitrite, Urine Pos (Neg); Protein, Urine 3+ (Neg); Specific Gravity, Urine 1.015 (1.003-1.022); Urobilinogen, Urine 1+ (Normal)
[2020-02-17 15:13] LABS: Bacteria Many /hpf; Red Blood Cells, Urine TNTC /hpf (0-2); Squamous Epithelial Cells Few /hpf (Few); White Blood Cells, Urine TNTC /hpf (0-5)
[2020-02-17 15:14] LABS: Alanine Aminotransfer (ALT/SGP 41 U/L (12-78); Albumin, Blood 2.2 g/dL (3.4-5.0); Albumin/Globulin Ratio 0.4 (0.8-1.8); Alk Phos 277 U/L (50-136); Anion Gap 7 mmol/L (6-16); Aspartate Aminotrans (AST/SGOT 38 U/L (12-37); Bilirubin, Total 0.3 mg/dL (0.1-1.0); Blood Urea Nitrogen 24 mg/dL (8-24); Bun/Creatinine Ratio 34.2 (12.0-20.0); CO2, Blood 29 mmol/L (21-32); Chloride, Blood 107 mmol/L (98-108); Globulin, Blood 5.7 g/dL (2.2-4.0); Glomerular Filtration Rate >60 (60-); Glucose, Blood 216 mg/dL (70-99); Potassium, Blood 3.6 mmol/L (3.5-5.5); Sodium, Blood 143 mmol/L (136-145); Total Protein, Blood 7.9 g/dL (6.4-8.2)
[2020-02-17] MEDS ORDERED: ASCO500 PO (15:22)
[2020-02-17] MEDS ORDERED: Magic Bullet10 MG PR (15:23)
[2020-02-17] MEDS ORDERED: Vitamin D2000 UNIT PO (15:23)
[2020-02-17] MEDS ORDERED: ATOR20 PO (15:23)
[2020-02-17] MEDS ORDERED: Aspirin EC81 MG PO (15:23)
[2020-02-17] MEDS ORDERED: METO25 PO (15:24)
[2020-02-17] MEDS ORDERED: Neurontin 100100 MG PO (15:24)
[2020-02-17] MEDS ORDERED: Docusate Sodiu250 MG PO (15:24)
[2020-02-17] MEDS ORDERED: POTA10T PO (15:26)
[2020-02-17] MEDS ORDERED: Senna8.6 MG PO (15:27)
[2020-02-17] MEDS ORDERED: TRAZ50 PO (15:27)
[2020-02-17] MEDS ORDERED: SERT25 PO (15:27)
[2020-02-17] MEDS ORDERED: Vitamin E100 UNIT PO ×2 (15:28→18:49)
[2020-02-17] MEDS ORDERED: MIRALAX17 GM PO (16:07)
[2020-02-17] MEDS ORDERED: METAMUCIL POWD575 GM PO (18:50)
[2020-02-18 04:56] LABS: Hematocrit 35.4 % (37.0-53.0); Hemoglobin 10.7 g/dL (13.5-17.5); Mean Corpuscular HGB 26.1 pg (26.0-34.0); Mean Corpuscular HGB Conc 30.2 g/dL (31.5-36.5); Mean Corpuscular Volume 86 fL (80-100); Mean Platelet Volume 8.8 fL (9.1-12.4); Platelet Count 264 K/mm3 (150-400); RDW Coefficient Variation 14.5 % (11.7-14.2); White Blood Cell Count 10.68 K/mm3 (4.00-11.30)
[2020-02-18 05:16] LABS: Anion Gap 6 mmol/L (6-16); Blood Urea Nitrogen 15 mg/dL (8-24); Bun/Creatinine Ratio 32.5 (12.0-20.0); CO2, Blood 25 mmol/L (21-32); Chloride, Blood 113 mmol/L (98-108); Creatinine, Blood 0.46 mg/dL (0.60-1.20); Glomerular Filtration Rate >60 (60-); Glucose, Blood 171 mg/dL (70-99); Potassium, Blood 3.3 mmol/L (3.5-5.5); Sodium, Blood 144 mmol/L (136-145)
--- NOTE | 2020-02-18 06:01 | NUR ---
shift summary pt confused and restless through night tele nsr room air paraplegia - bedrest with q2 turns wound care on sacrum/buttock pressure ulcers suprapubic hayward - 300ml incontinent bm vss - bp holding well/afebrile no visible signs of pain call light within reach, bed in lowest position with bed alarm on. will continue to monitor.
--- NOTE | 2020-02-18 07:23 | NUR ---
pt laying in bed with music playing. nonverbal this am, v.s. stable, lungs are clear dim in bases, resp even and unlabored, no cough noted, hrr, tele in place running sr to st per monitor, see strip, no edema noted, ppp+2, cap refill <3sec, iv site is clear and patent, infusing lr as ordered, btx4, abd flat soft nontender, supra pubic cath draining cloudy gus urine, skin has two wounds to bottom area, pictures in chart, dressings in place, turn Q 2hr, tyrone, call light in reach.
--- NOTE | 2020-02-18 12:58 | NUR ---
PT IS BEING TRANSFERRED TO MEDICAL FLOOR, REPORT GIVEN TO YEE RN. PT WILL BE TAKEN VIA BED WITH WASH DRILLER'S IN ATTENDENCE.
--- NOTE | 2020-02-18 17:20 | NUR ---
PT IA ALERT, ORIENTED TO SELF AT THIS TIME, THE PT HAS BEEN MOSTLY SLEEPY SINCE ARRIVING TO THE MEDICAL FLOOR AROUND 1330, THE PT AWAKENS FOR A SHORT MOMENTS WHEN STIMULIZED, THE PT APPEARS TO BE BREATHING EASILY WITHIUT OXYGEN AT THIS TIME, DR. GARZA CONSULTED ON THE PTS WOUNDS THIS AFTERNOON, THE PT HAS BEEN REPOSITIONED T/O THIS SHIFT, THE PTS ARMS APPEAR TO BE SLIGHTLY CONTRACTED, THE PT IS VERY STIFF, CALL LIGHT IN REACH, WILL CONTINUE TO MONITOR AND ASSESS FOR CHANGES
--- NOTE | 2020-02-19 04:38 | NUR ---
SHIFT SUMMARY ASSUMED CARE OF PT AT 1900. PT IS ALERT TO SELF AND FAMILY. PT CALLS OUT INTO THE HALLWAY AND IS FORGETFUL WHEN REDIRECTED. PT HAS SUPRAPUBIC CATHETER, DRAINING CLOUDY YELLOW URINE. PT HAS LOOSE MUCUS STOOL. PT HAS TWO DECUBITIS ULCERS ON COCCYX AND BUTTOCK, MEPELEX C/D/I. PT TOOK MEDICATION CRUSHED IN APPLESAUCE BUT CAN DRINK THIN LIQUIDS FROM A STRAW. PT DID NOT SLEEP VERY WELL DURING THE NIGHT. CALL LIGHT IN REACH, BED IN LOWEST POSTION
[2020-02-19] MEDS ORDERED: CADEXOMER IODINE TOP (05:21)
[2020-02-19 05:41] LABS: BASOPHILS ABSOLUTE AUTO 0.02 K/mm3 (0.00-0.23); BASOPHILS PERCENT AUTO 0 % (0-2); EOSINOPHILS PERCENT AUTO 6 % (0-6); Hematocrit 34.2 % (37.0-53.0); Hemoglobin 10.6 g/dL (13.5-17.5); IMMATURE GRAN ABSOLUTE AUTO 0.03 K/mm3 (0.00-0.10); IMMATURE GRAN PERCENT AUTO 0 % (0-1); LYMPHOCYTES ABSOLUTE AUTO 1.43 K/mm3 (0.84-5.20); LYMPHOCYTES PERCENT AUTO 21 % (21-46); MONOCYTES ABSOLUTE AUTO 0.36 K/mm3 (0.16-1.47); MONOCYTES PERCENT AUTO 5 % (4-13); Mean Corpuscular HGB 26.4 pg (26.0-34.0); Mean Corpuscular Volume 85 fL (80-100); Mean Platelet Volume 8.7 fL (9.1-12.4); NEUTROPHILS ABSOLUTE AUTO 4.58 K/mm3 (1.96-9.15); NEUTROPHILS PERCENT AUTO 67 % (41-73); Platelet Count 275 K/mm3 (150-400); RDW Coefficient Variation 14.4 % (11.7-14.2); RDW Standard Deviation 44.8 fL (35.1-46.3); Red Blood Cell Count 4.01 M/mm3 (4.30-5.90); White Blood Cell Count 6.82 K/mm3 (4.00-11.30)
[2020-02-19 06:17] LABS: Magnesium, Blood 1.6 mg/dL (1.6-2.4)
[2020-02-19 06:19] LABS: Alanine Aminotransfer (ALT/SGP 26 U/L (12-78); Albumin, Blood 1.6 g/dL (3.4-5.0); Albumin/Globulin Ratio 0.4 (0.8-1.8); Alk Phos 199 U/L (50-136); Anion Gap 6 mmol/L (6-16); Aspartate Aminotrans (AST/SGOT 31 U/L (12-37); Bilirubin, Total 0.2 mg/dL (0.1-1.0); Blood Urea Nitrogen 15 mg/dL (8-24); Bun/Creatinine Ratio 32.3 (12.0-20.0); CO2, Blood 25 mmol/L (21-32); Calcium, Blood 8.1 mg/dL (8.5-10.1); Chloride, Blood 112 mmol/L (98-108); Creatinine, Blood 0.46 mg/dL (0.60-1.20); Globulin, Blood 3.6 g/dL (2.2-4.0); Glomerular Filtration Rate >60 (60-); Glucose, Blood 125 mg/dL (70-99); Potassium, Blood 4.1 mmol/L (3.5-5.5); Sodium, Blood 143 mmol/L (136-145)
[2020-02-19 06:22] LABS: Total Protein, Blood 5.2 g/dL (6.4-8.2)
--- NOTE | 2020-02-19 14:20 | NUR ---
ASSISTED DR JAMES IN CHANGING SUPRAPUBIC CATHETER. PATIENT TOLERATED WELL.
[2020-02-19 15:30] LABS: Source, Urine Catheter
[2020-02-19 15:40] LABS: Appearance, Urine Hazy (Clear); Bilirubin, Urine Neg (Neg); Blood, Urine 5+ (Neg); Color, Urine Yellow (P-Yellow); Glucose Qualitative, Urine Neg (Neg); Ketones, Urine Neg (Neg); Leukocyte Esterase, Urine 3+ (Neg); Nitrite, Urine Neg (Neg); Protein, Urine 2+ (Neg); Specific Gravity, Urine 1.005 (1.003-1.022); Urobilinogen, Urine NORM (Normal)
[2020-02-19 15:48] LABS: Amorphous Light (0-Heavy); Bacteria Few /hpf; Mucus Light (0-Heavy); Red Blood Cells, Urine 25-50 /hpf (0-2); Renal Epithelial Few /hpf (0-Rare); Squamous Epithelial Cells Rare /hpf (Few); White Blood Cells, Urine 25-50 /hpf (0-5)
--- NOTE | 2020-02-19 15:56 | NUR ---
SHIFT SUMMARY PT A&O TO SELF, MONTH, AND PLACE. HOWEVER PT VERY CONFUSED T/O SHIFT AND NONSCENSICLE, YELLING OUT TO BARRAZA FOR HIS AND MOM @ TIMES. MEPILEX ON COCCYX AND BUTTOCK HAVE BEEN CLEANED AND CHANGED TODAY WITH EACH ATTENDS CHANGE. STOOL HAS BEEN LOOSE AND MUCOUSY. SUPRAPUBIC CATHETER WAS CHANGED BY DR FIGUEROA DUE TO NO DOCUMENTATION OF CHANGE UPON ADMISSION. CATHETER IS PATENT AND DRAINING, UA SENT TO LAB AT TIME OF CATHETER INSERTION. PT WAS AWAITING DEBRIDEMENT PROCEDURE TODAY OF WOUND, BUT POWER OF DIRECT CASTING OPERATOR (HIS SON) WAS UNREACHABLE FOR CONSENT. DR GARZA WILL CONTINUE TO TRY GETTING AHOLD OF HIM.
--- NOTE | 2020-02-19 20:46 | NUR ---
PT TRANSFERRED TO ROOM FROM ROOM 340 WITH RESCENT HX OF ATEMPTING TO PULL OUT SUPRAPBIC CATH. PLACED ON VIDEO OBS FOR SAFETY. ISOLATION RECAUTIONS MAINTAINED. SEEMS CONFUSED WIH QUESTIONS ASKED. CALL LIGHT IN REACH. RAILS UP X 3. IVF INFSING - SEE MAR FOR DETAILS
--- NOTE | 2020-02-20 03:09 | NUR ---
SHIFT SUMMARY AWAKE AT INTERVALS THROUGH SHIFT. POINTING AT AND TALKING TO THE CEILING. COVERED WITH WARM BLANKETS HE SEEMS TO TAKE COVERS OFF AND PLAY WITH THEM. SUPRAPUBIC CATH INTACT. RAILS UP X 3. CALL LIGHT IN REACH. IVF INFUSING AT 100 ML/HR - SEE MAR FOR DETAILS. NPO SINCE MIDNIGHT FOR POSSIBLE PROCEDURE TOMORROW. VIDEO OBS CONTINUES FOR SAFETY
[2020-02-20 05:16] LABS: BASOPHILS ABSOLUTE AUTO 0.02 K/mm3 (0.00-0.23); BASOPHILS PERCENT AUTO 0 % (0-2); EOSINOPHILS ABSOLUTE AUTO 0.27 K/mm3 (0.00-0.68); EOSINOPHILS PERCENT AUTO 3 % (0-6); Hematocrit 33.2 % (37.0-53.0); Hemoglobin 10.2 g/dL (13.5-17.5); IMMATURE GRAN ABSOLUTE AUTO 0.03 K/mm3 (0.00-0.10); IMMATURE GRAN PERCENT AUTO 0 % (0-1); LYMPHOCYTES PERCENT AUTO 17 % (21-46); MONOCYTES ABSOLUTE AUTO 0.32 K/mm3 (0.16-1.47); MONOCYTES PERCENT AUTO 4 % (4-13); Mean Corpuscular HGB Conc 30.7 g/dL (31.5-36.5); Mean Corpuscular Volume 85 fL (80-100); Mean Platelet Volume 8.6 fL (9.1-12.4); NEUTROPHILS ABSOLUTE AUTO 6.32 K/mm3 (1.96-9.15); NEUTROPHILS PERCENT AUTO 76 % (41-73); Platelet Count 285 K/mm3 (150-400); RDW Coefficient Variation 14.2 % (11.7-14.2); RDW Standard Deviation 44.3 fL (35.1-46.3); Red Blood Cell Count 3.93 M/mm3 (4.30-5.90); White Blood Cell Count 8.36 K/mm3 (4.00-11.30)
[2020-02-20 05:59] LABS: Alanine Aminotransfer (ALT/SGP 22 U/L (12-78); Albumin, Blood 1.6 g/dL (3.4-5.0); Albumin/Globulin Ratio 0.4 (0.8-1.8); Alk Phos 198 U/L (50-136); Anion Gap 7 mmol/L (6-16); Aspartate Aminotrans (AST/SGOT 25 U/L (12-37); Bilirubin, Total 0.2 mg/dL (0.1-1.0); Blood Urea Nitrogen 15 mg/dL (8-24); Bun/Creatinine Ratio 32.8 (12.0-20.0); CO2, Blood 23 mmol/L (21-32); Calcium, Blood 8.2 mg/dL (8.5-10.1); Chloride, Blood 113 mmol/L (98-108); Creatinine, Blood 0.46 mg/dL (0.60-1.20); Globulin, Blood 4.1 g/dL (2.2-4.0); Glomerular Filtration Rate >60 (60-); Glucose, Blood 114 mg/dL (70-99); Potassium, Blood 3.8 mmol/L (3.5-5.5); Sodium, Blood 143 mmol/L (136-145); Total Protein, Blood 5.7 g/dL (6.4-8.2)
--- NOTE | 2020-02-20 09:54 | NUR ---
PT TRASPORTED TO SDS. PT SLEEPING. WHEN WAKENS, DOES NOT OPEN EYES. ANSWERS SOME YES/NO QUESTIONS. 22G IV IN PLACE. ATTEMPTED X2 TO PLACE A LARGER IV FOR SURGERY WITHOUT SUCCESS. PT TOLERATED ATTEMPS WELL.
--- NOTE | 2020-02-20 10:18 | NUR ---
VERBAL CONSENT FOR SURGERY AND ANESTHESIA AND TRANSFUSTION OF BLOOD PRODUCTS OBTAINE VIA PHONE FROM SON NAVEEN KO. PATIENTS RING REMOVED AND PLACED IN BAGGIE WITH NAME ON IT, IN INSIDE FRONT POCKET OF CHART.
--- NOTE | 2020-02-20 11:05 | NUR ---
02/20/20 [facility] Arianna Sheets PT ON SCHEDULED ANTIBIOTICS AND ENTERED OR WITH BURNETTE CATHETER
--- NOTE | 2020-02-20 11:54 | NUR ---
RECIEVED REPORT FROM CADY OLIVA RN AT 1154. PATIENT TO RETURN TO ROOM 348 SHORTLY.
--- NOTE | 2020-02-20 12:24 | NUR ---
PATIENT RETURNED TO ROOM 348 FROM OR @ 1215. vITALS CHECKED AND PATIENT SITUATED COMFORTABLY IN BED.
--- NOTE | 2020-02-20 15:28 | NUR ---
PATIENT HAS BEEN SLEEPING SINCE HIS RETURN FROM THE OR. HE RESPONDS TO PAIN AND SOMETIMES VERBAL CUES, BUT IS VERY LETHARGIC OTHERWISE. UNABLE TO WAKE HIM ENOUGH TO ATTEMPT TO SAFELY FEED HIM OR GIVE HIM PO MEDICATIONS. BP WAS SLIGHTLY LOW S/P I&D ON THE WOUNDS, HOWEVER SPB HAS RISEN TO THE 111's. PATIENT IS OFF 02, PLACED BY THE OR AND SAT'ing IN THE MID 90s. PATIENT REPOSITIONED TOLERATED. SUPRA-PUBIC CATH IS PATENT AND DRAINING TO GRAVITY. PATIENT CONTINUES ON IV ABX WITHOUT S/SX OF ADVERSE REACTIONS NOTED OR REPORTED. PATIENT CONTINUES TO SLEEP IN BED AT THIS TIME. WILL CONTINUE TO MONITOR AND PROVIDE CARE NEEDED.
--- NOTE | 2020-02-21 05:08 | NUR ---
SHIFT SUMMARY PT WAS DROWSY/LETHARGIC @BEGINNING OF SHIFT & WOULD NOT OPEN EYES, DAY NURSE REPORTED PT HAD BEEN LIKE THAT T/O DAY SHIFT. DURING MY ASSESSMENT PT WAS ALERT & ABLE TO ANSWER QUESTIONS. AOX2-PLACE/SELF. KNEW HE WAS IN [place], BUT COULD NOT STATE THE HOSPITAL, WAS UNAWARE DATE-STATED IT WAS APR 1989. WAS ABLE TO BIOLOGICAL ENGINEER HANDS BILAT & FOLLOW SIMPLE DIRECTIONS. DENIES ANY PAIN, N/V OR DYSPNEA. POD#1, HAD I&D YESTERDAY 02/20/20- STAGE 4 PRESSURE SORES ON BUTTOCKS. CLEANSED, TOOK NEW PICS & REDRESSED WOUNDS. MODERATE AMOUNT SEROSANGUINOUS DRAINAGE. TURNED & REPOSITIONED Q2H. VSS. HELD METOPROLOL LAST NIGHT BECAUSE BP 94/58. NS c 20MEQ K RUNNING @100ML/HR. CALL LIGHT IN REACH.
--- NOTE | 2020-02-21 18:22 | NUR ---
DRESSINGS CHANGED TO PT WOUNDS. FAMILY PRESENT DURING . PT WAS AWAKE ALL SHIFT AND ABLE TO ANSWER SIMPLE QUESTIONS. CONFUSION AT TIMES BUT EASILY DIRECTABLE AND PLEASANT WITH STAFF. PT HAS BED ALARM ON AND HAS NOT TRIED TO GET UP. PT FED SELF AND TOOK ORAL MEDS . NO ACUTE CHANGES.
--- NOTE | 2020-02-22 04:28 | NUR ---
SHIFT SUMMARY PT HAD DIFFICULTY SLEEPING TONIGHT, MAYBE 2HRS TOTAL. AOX1-SELF ONLY. ABLE TO FOLLOW SIMPLE DIRECTIONS. HAS NONSENSICAL SPEECH & DOES NOT ANSWER QUESTIONS APPROPRIATE @TIMES. CHANGED WOUND DRESSINGS. PT HAD [facility] JACQUELINE SALAS. SUPRAPUBIC CATH PATENT & DRAINING. CALL LIGHT IN REACH & BED ALARM IN PLACE.
[2020-02-22 10:54] LABS: Creatinine, Blood 0.47 mg/dL (0.60-1.20); Vancomycin, Trough 8.7 ug/mL (5.0-10.0)
[2020-02-22] MEDS ORDERED: ZINC220 PO (11:51)
[2020-02-22] MEDS ORDERED: SULFAMETHOXAZO1 EAC1 PO (11:52)
--- NOTE | 2020-02-22 16:46 | NUR ---
NO ACUTE CHANGES. DRESSINGS CHANGED TO WOUNDS ON BOTTOM. FAMILY PRESENT DURING DRESSING CHANGES. PT HAS BEEN AWAKE ALL SHIFT BUT VERY CONFUSED OFTEN HALLUCINATING. PT FLOATED DURING THE DAY TO KEEP OFF WOUNDS.
--- NOTE | 2020-02-23 04:24 | NUR ---
SHIFT SUMMARY ASSUMED CARE OF PT AT 1900. PT IS A/OX1. PT IS PARALIZED FROM WAIST DOWN BUT HAS PAIN IN HIS SHOULDER AND BACK, MEDICATED PER EMAR. PT PULLS AT ANYTHING THAT IS AROUND HIM, INCLUDING HIS CATHETER, THE SIGHT AROUND HIS CATHETER IS DISCOLORED, DRAINING URINE. PT HAD VERY LARGE BM THIS SHIFT. PT DRESSINGS WERE CHANGED THIS SHIFT. NO ACUTE EVENTS DURING THE NIGHT. PT SLEPT MOST OF THE NIGHT. CALL LIGHT IN REACH, BED IN LOWEST POSTION.
--- NOTE | 2020-02-23 17:31 | NUR ---
PT DISCHARGED FROM THE UNIT. LEFT WITH TRANSPORT VIA GURNEY. PHOTOS OF WOUNDS UPDATED. GAVE REPORT TO VALENTÍN AT [facility]. BM THIS SHIFT. PT SLEPT FOR ALL OF THIS SHIFT. SUPER-PUB CATH IS DRAINING WELL. NO IV
== END 2020-02-23 17:26 | DRG 981 ==
LOC: ER 14:14 → PCU 15:50 → MEDS 15:50 → PCU 19:44 → MEDS 02-18 13:19
PROVIDERS: Emergency Medicine; Internal Medicine; Pharmacist; Surgery; ADMIT Internal Medicine
PROC: 0QDS0ZZ Extraction of Coccyx, Open Approach (ICD-10-PCS; principal; 2020-02-20 10:00)
DX: T83.510A Infection and inflammatory reaction due to cystostomy catheter, initial encounter (principal); L89.154 Pressure ulcer of sacral region, stage 4; R65.20 Severe sepsis without septic shock; G92 Toxic encephalopathy; A41.02 Sepsis due to Methicillin resistant Staphylococcus aureus; G82.21 Paraplegia, complete; M86.9 Osteomyelitis, unspecified; Z87.820 Personal history of traumatic brain injury; K21.9 Gastro-esophageal reflux disease without esophagitis; I25.10 Atherosclerotic heart disease of native coronary artery without angina pectoris; F03.90 Unspecified dementia, unspecified severity, without behavioral disturbance, psychotic disturbance, mood disturbance, and anxiety; E78.5 Hyperlipidemia, unspecified; Z74.01 Bed confinement status; F32.9 Major depressive disorder, single episode, unspecified; I10 Essential (primary) hypertension
CPT/HCPCS: 36415; 71045; 72193; 80048; 80053; 80202; 81001; 82565; 82728; 82947; 83540; 83550; 83605; 83735; 85025; 85027; 87040; 87070; 87071; 87075; 87076; 87077; 87086; 87147; 87185; 87186; 87205; 96361; 96365; 97161; 99285-25; A9270; A9270-GY; J0696; J1650; J1885; J2370; J2405; J2704; J3010; J3370; J3480; J7030; J7050; J7120; Q9967; U0003